=== PATIENT | female | born 1995 | race Caucasian/White ===

== ENCOUNTER 2020-09-20 18:05 | Emergency (ER) | payer OTHER, SELFPAY ==
[2020-09-20 18:12] VITALS: BP 119/87; PULSE 79; RESP 18; TEMP 36.1; O2SAT 98; BMI 25.6
[2020-09-20 19:09] LABS: Appearance Urine HAZY; Color Urine YELLOW; Glucose Urine UA NEG (NEG); Leukocyte Esterase Urine TRACE (NEG); Nitrite Urine POS (NEG); Specific Gravity - Urine 1.025 (1.005-1.025); UACC Culture Trigger YES; Urine Blood NEG (NEG); Urine Ketones 5 MG/DL (NEG); Urine Protein NEG (NEG-TRACE)
[2020-09-20 19:11] LABS: UPreg QC Valid YES; Urine Pregnancy NEGATIVE (NEGATIVE)
[2020-09-20 19:16] LABS: Bacteria Urine 3+ /LPF; RBC Urine 0 /HPF (0); Squamous Epithelial Cell Urine 1+ /LPF
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
[2020-09-20] MEDS: cefTRIAXone sodium 500 MG, Lidocaine HCl 1 % MPF 1 ML IM (20:11)
[2020-09-21 05:44] LABS: CT PCR NOT DETECTED (Not Detect.); NG PCR NOT DETECTED (Not Detect.)
[2020-09-21 08:50] LABS: BV Int Neg Control Negative (Negative); BV Int Pos Control Positive (Positive)
== END 2020-09-20 20:24 | disposition home or self-care (01) ==
PROVIDERS: Physician Assistant; Emergency Provider Emergency Medicine
DX: N39.0 Urinary tract infection, site not specified (principal); N76.0 Acute vaginitis; R30.0 Dysuria; Z79.899 Other long term (current) drug therapy; Z20.2 Contact with and (suspected) exposure to infections with a predominantly sexual mode of transmission
CPT/HCPCS: 81001; 81003; 81025; 87086; 87088; 87186; 87480; 87491; 87510; 87591; 87660; 96372; 99284; J0696

== ENCOUNTER 2021-03-14 11:07 | Outpatient (REF) | payer SELFPAY ==
[2021-03-14 13:19] LABS: COVID-19 Test Positive (Negative)
== END 2021-03-14 11:08 | disposition home or self-care (01) ==
LOC: HO.LAB 11:07
PROVIDERS: Visit Provider Internal Medicine
DX: Z20.822 Contact with and (suspected) exposure to COVID-19 (principal)
CPT/HCPCS: 87635

== ENCOUNTER 2021-11-23 07:56 | Outpatient (REF) | payer OTHER, SELFPAY ==
[2021-11-23 08:26] LABS: COVID-19 Test Positive (Negative); IDNOW Serial# 55D5AD1C
== END 2021-11-23 07:57 | disposition home or self-care (01) ==
LOC: HO.LAB 07:56
PROVIDERS: Visit Provider Internal Medicine
DX: Z20.822 Contact with and (suspected) exposure to COVID-19 (principal)
CPT/HCPCS: 87635; C9803

== ENCOUNTER 2021-11-27 12:14 | Outpatient (REF) | payer OTHER, SELFPAY ==
[2021-11-27 12:56] LABS: COVID-19 Test Negative (Negative); IDNOW Serial# 55D5AD1C
== END 2021-11-27 12:15 | disposition home or self-care (01) ==
LOC: HO.LAB 12:14
PROVIDERS: Visit Provider Internal Medicine
DX: Z20.822 Contact with and (suspected) exposure to COVID-19 (principal)
CPT/HCPCS: 87635; C9803

== ENCOUNTER 2023-01-24 19:59 | Emergency (ER) | payer OTHER, SELFPAY ==
[2023-01-24 20:03] VITALS: BP 140/85; PULSE 77; RESP 18; TEMP 37; O2SAT 100; BMI 25.9
--- NOTE | 2023-01-24 20:03 | ED.EYEPROB ---
HPI - Eye Problem General Chief complaint: Eye Problems Stated complaint: poked eye Time Seen by Provider: 01/24/23 21:05 Source: patient Mode of arrival: ambulatory Limitations: no limitations History of Present Illness HPI Narrative: Patient comes to emergency room complaining right eye pain. Patient states that she accidentally poked her own eye with her fingernail. Patient complaining of erythema, pain and tearing. Related Data Previous Rx's Medication Instructions Recorded doxycycline hyclate 100 mg capsule 100 mg PO BID #14 caps 09/20/20 fluconazole 150 mg tablet 150 mg PO Q3D 2 doses #2 tabs 09/20/20 (Diflucan) metronidazole 500 mg tablet 500 mg PO BID 7 days #14 tabs 09/23/20 (Flagyl) erythromycin 5 mg/gram (0.5 %) eye 0.5 inch ophthalmic (eye) TID #3.5 01/24/23 ointment grams Allergies Allergy/AdvReac Type Severity Reaction Status Date / Time amoxicillin Allergy Hives Verified 09/20/20 18:16 Penicillins [PCN] Allergy Hives Verified 09/20/20 18:16 Review of Systems Review of Systems: Constitutional : No Weight loss, No Fever, No Chills, No Night Sweats, No Fatigue, No Malaise ENT/Mouth : No Hearing loss, No Ear Pain, No Nasal Congestion, No Sinus Pain, No Hoarseness, No sore throat, No Rhinorrhea, No Swallowing Difficulty Eyes: Complaining of right eye pain, erythema, photophobia, No Vision Changes Cardiovascular : No Chest Pain, No SOB, No Dyspnea on Exertion, No Orthopnea, No Edema, No Palpitations Respiratory : No Cough, No Sputum, No Wheezing, No Smoke Exposure, No Dyspnea Gastrointestinal : No Nausea, No Vomiting, No Diarrhea, No Constipation, No abdominal Pain, No Hematochezia, No Melena Genitourinary : no irregular bleeding, No Dysuria, No Urinary Frequency, No Hematuria, No Urinary Incontinence, No Urgency, No Flank Pain, No Urinary Flow Changes, No Hesitancy Musculoskeletal : No joint pain, No Myalgias, No Joint Swelling Skin : No Skin Lesions, No rash Neuro : No Weakness, No Numbness, No Paresthesias, No Loss of Consciousness, No Dizziness, No Headache Psych : No Anxiety/Panic, No Depression, No SI/HI/AH/VH, No Social Issues, Heme/Lymph: No Bruising, No Bleeding,No Lymphadenopathy Endocrine : No Polyuria, No Polydipsia, No Temperature Intolerance [facility] Past Medical History Medical History No acute medical problems Surgical History No history of previous surgery Social History Social History Advance Directives: No Advance Directives Information Provided: No Physical Exam Vital Signs: Vital Signs: Last Vital Signs Temp 98.6 F 01/24/23 20:03 Pulse 77 01/24/23 20:03 Resp 18 01/24/23 20:03 BP 140/85 H 01/24/23 20:03 Pulse Ox 100 01/24/23 20:03 O2 Del Method Room Air 01/24/23 20:03 BMI result Body Mass Index 25.9 Const: Other: Appearance: Alert. Oriented X3. No acute distress. Eyes: Pupils equal, round and reactive to light. Left eye intact, right eye is erythematous, Paz stain test shows a 2 mm corneal laceration, negative Chrissie ENT: Pharynx normal. Neck: Normal inspection. Neck supple. No lymph nodes noted. No crepitus CVS: Normal heart rate and rhythm. Pulses normal. Normal S1 and S2 Respiratory: No respiratory distress. Breath sounds normal. No Wheezing. No rales Abdomen: Soft and nontender. No rigidity. No distention. Skin: Skin warm and dry. Normal skin color. Normal skin turgor. Extremities: No lower extremity edema. No Lacerations. No Rash Neuro: Oriented X 3. No motor deficit. No sensory deficit. Moving all extremities. No slurred speech. CN 2 through 12 grossly intact Psych: calm, cooperative, normal affect Course Course Course Narrative: This is an RME: Additional HPI, ROS, PE not included below will be deferred to primary provider. This is a [id number] presenting to the emergency department with a complaint of right eye pain, redness and photophobia x 4 hours. Pt states that she accidentally hit her right eye with her finger. Has had redness, drainage. Endorsing blurred vision from her right eye. Right eye conjunctiva injected. pupil reactive, clear drainage noted. Plan: Further ER evaluation needed for thorough eye exam Medications Administered Discontinued Medications Generic Name Dose Route Start Last Admin Trade Name Jigar PRN Reason Stop Dose Admin Fluorescein Sodium 1 strip 01/24/23 20:07 01/24/23 20:27 Fluorescein Sodium Strip EYE-RIGHT 01/24/23 20:08 1 strip ONCE ONE Administration Tetracaine HCl 1 drop 01/24/23 20:07 01/24/23 20:27 Tetracaine Hcl/Pf 0.5% Oph Vivienne 4 Ml Drops EYE-RIGHT 01/24/23 20:08 1 drop ONCE ONE Administration Medical Decision Making Medical Decision Making [facility] Narrative: -I discussed the physical exam with the patient, patient has corneal abrasion Differential Diagnosis Differential Diagnoses: The differential diagnosis associated with the presentation includes (Cornea abrasion, laceration, perforation) Discharge Plan Discharge Clinical Impression: Corneal abrasion Patient Disposition: Home, Self-Care Instructions: Corneal Abrasion (ED) Additional Instructions: Please follow-up with your primary care physician tomorrow. If you have any worsening or new symptoms, please return to the emergency room or call 911 Prescriptions: New erythromycin 5 mg/gram (0.5 %) ointment 0.5 inch ophthalmic (eye) TID Qty: 3.5 0RF No Action fluconazole [Diflucan] 150 mg tablet 150 mg PO Q3D Qty: 2 0RF Rx Instructions: may repeat second dose 72 hrs after first dose if symptoms persist doxycycline hyclate 100 mg capsule 100 mg PO BID Qty: 14 0RF metronidazole [Flagyl] 500 mg tablet 500 mg PO BID 7 Days Qty: 14 0RF
[2023-01-24] MEDS: Fluorescein Sodium STRIP 1 STRIP EYE-RIGHT (20:27)
[2023-01-24] MEDS: Tetracaine HCl/PF 0.5% Oph Sol 4 ML DROPS 1 DROP EYE-RIGHT (20:27)
--- NOTE | 2023-01-24 21:16 | PC.NURSE ---
right sclera is red, irritated, surplus tears noted. No purulent drainage.
== END 2023-01-24 21:54 | disposition home or self-care (01) ==
PROVIDERS: Emergency Provider Emergency Medicine; PCP Internal Medicine
DX: S05.01XA Injury of conjunctiva and corneal abrasion without foreign body, right eye, initial encounter (principal); H57.11 Ocular pain, right eye; X58.XXXA Exposure to other specified factors, initial encounter; Y93.9 Activity, unspecified; Y92.9 Unspecified place or not applicable; Y99.9 Unspecified external cause status; Z79.899 Other long term (current) drug therapy
CPT/HCPCS: 99282; 99283

== ENCOUNTER 2025-01-21 05:08 | Day surgery (SDC) | payer OTHER, SELFPAY ==
[2025-01-21] VITALS (19 sets, daily range): BP systolic 88–110; BP diastolic 36–70; PULSE 63–102; RESP 14–24; TEMP 36.6–37.1; O2SAT 96–100; BMI 25.5
--- NOTE | ~2025-01-21 | CT_ITS ---
CLINICAL HISTORY: suprapubic, RLQ pain CT abdomen and pelvis with contrast Comparison: None provided Findings: The lung bases are clear. Unremarkable gallbladder and solid organs. No urolithiasis. No bowel obstruction, pneumoperitoneum, or pneumatosis. Pelvic contents unremarkable. The appendix is not visualized with no imaging evidence of appendicitis. There is dense ascites, possible hemoperitoneum. The bones are intact. IMPRESSION: Possible hemoperitoneum. Clinical follow-up recommended. This document has been electronically signed by: Mekhi Tinoco MD on 01/21/2025 07:10:59
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
[2025-01-21 06:03] LABS: Hematocrit 33.7 % (37.0-47.0); Hemoglobin 10.9 g/dl (12.0-16.0); Imm Gran Abs Auto 0.02 X10*3/uL (0.00-0.03); Imm Gran Pct Auto 0.3 % (0.0-0.4); Lymphocytes Absolute Auto 0.6 X10*3/uL (1.2-4.9); MANUAL DIFF FLAG NO; Mean Corpuscular HGB Conc 32.3 g/dl (31.0-35.0); Mean Corpuscular Hemoglobin 27.7 pg (27.0-33.0); Mean Corpuscular Volume 85.5 fL (80.0-98.0); NRBC Abs Auto 0.000 X10*3/uL (0.0-0.012); NRBC Pct Auto 0.0 /100WBC (0.0-0.2); Platelet Count 182 X10*3/uL (160-400); Red Blood Count 3.94 X10*6/uL (4.20-5.50); White Blood Count 7.7 X10*3/uL (4.8-10.8)
[2025-01-21 06:17] LABS: Alanine Aminotransferase 28 U/L (0-31); Albumin Level 4.3 g/dL (3.5-5.0); Alkaline Phosphatase 40 U/L (39-117); Anion Gap 13 (12-20); Aspartate Amino Transferase 48 U/L (5-31); Blood Urea Nitrogen 14 mg/dL (9-16); Calcium 8.8 mg/dL (8.4-10.2); Carbon Dioxide 22 mmol/L (22-29); Chloride 109 mmol/L (96-108); Creatinine Clr Calc Pharmacy 104.0; Estimated Glomerular Filt Rate > 60; Lipase 16 U/L (8-78); Potassium 4.3 mmol/L (3.3-5.1); Sodium 140 mmol/L (135-145); Total Protein 6.7 g/dL (6.5-8.0)
[2025-01-21] MEDS: iohexoL 350 MG/ML 100 ML INFUS..BTL IV (06:55)
--- OUTSIDE RECORDS SUMMARY | 2025-01-21 06:58 | XMS_ITS | Encounter Summary ---
Author Organization [address] [place] [address] Care Team Providers Care Rolloff Driver Name Role Phone Gail Jerry MD Primary Care Provider [phone] Encounter Details Date Type Department Care Team ([facility] Contact Info) Description 12/07/2024 Results Follow-Up Adult Medicine [address] [phone] Gail Jerry MD [address] [place] [address] Social History Tobacco Use Types Packs/Day Years Used Date Smoking Tobacco: Never Smokeless Tobacco: Never Alcohol Use Standard Drinks/Week Comments Yes 0 (1 standard drink = 0.6 oz pur e alcohol) Housing Instability Answer Date Recorde d Are you worried that in the next 2 months you may not have stable housing? No 04/11/2024 Food Access & Nutrition Answer Date Rec orded Do you have access to a vari ety of food including fruits and vegetables? Yes 04/11/2024 Access to Healthcare Answer Date Record ed Within the last 3 months, ho w many times did you visit the emergency department for your medical care? 2 04/11/2024 Health Literacy Answer Date Recorded How often do you need to hav e someone help you when you read instructions, pamphlets, or other written material from your doctor or pharmacy? Never 04/11/2024 Caregiver: How often do you need to have someone help you when you read instructions, pamphlets, or other written material from your doctor or pharmacy? Not on file 04/11/2024 Financial Risk Answer Date Recorded How hard is it for you to pa y for the very basics like food, housing, medical care, and air conditioning / heating? Very hard 04/11/2024 Transportation Answer Date Recorded Has the lack of transportati on kept you from meetings, work, or from getting things needed for daily living? No Has the lack of transportati on kept you from medical appointments or from getting medications? No 04/11/2024 Social Isolation Answer Date Recorded How often do you feel lonely or isolated from th ose around you? Never 04/11/2024 Food Risk Answer Date Recorded Within the past 12 months we worried whether our food would run out before we got money to buy more. Never true 04/11/2024 Within the past 12 months th e food we bought just didn't last and we didn't have money to get more. Never true 04/11/2024 Dependent Care Answer Date Recorded Do you need help finding or paying for care for your loved ones. For example, early childhood education worker or elderly care for an older adult? No 04/11/2024 Education Answer Date Recorded Do you think completing more education or training, like finishing a GED, going to college, or learning a trade, would be helpful for you? Yes 04/11/2024 Employment and Income Answer Date Recor ded During the last four weeks, have you been actively looking for work? No 04/11/2024 Living Situation Answer Date Recorded What is your living situation? Unrecognized valu e 04/11/2024 Comments Unknown Sex and Gender Information Value Date Recorded Sex Assigned at Female 11/21/2020 10:47 AM EDT Legal Sex Female 9:02 PM EST Gender Identity Female 11/21/2020 10:47 AM EDT Sexual Orientation Straight 11/21/2020 10 :47 AM EDT documented as of this encounter Plan of Treatment Not on file documented as of this encounter Visit Diagnoses Not on filedocumented in this encounter Additional Health Concerns Assessment Noted Time PHQ-9 Depression Total Score: 0 10/14/19 25 2:00 PM EDT documented as of this encounter Care Teams Rolloff Driver Relationship Specialty Start Date End Date Gail Jerry MD [address] [place] [phone] PCP - General Internal Medicine 04/14/24 documented as of this encounter
--- OUTSIDE RECORDS SUMMARY | 2025-01-21 06:58 | XMS_ITS | Encounter Summary ---
Author Organization [facility] Address [address] [place] [address] Phone Care Team Providers Care Kitchen Helper Name Role Phone Bisi Mendes MD Primary Care Provider [phone] Encounter Details Date Type Department Care Team (Late st Contact Info) Description 10/24/2016 Conversion Encounter [facility] [place] [address] [place] [address] Social History Tobacco Use Types Packs/Day Years Used Date Smoking Tobacco: Never Assessed Comments Unknown Sex and Gender Information Value Date Recorded Sex Assigned at Not on file Legal Sex Female 4:15 PM EDT Gender Identity Not on file Sexual Orientation Not on file documented as of this encounter Plan of Treatment Not on file documented as of this encounter Visit Diagnoses Not on filedocumented in this encounter Care Teams Kitchen Helper Relationship Specialty Start Date End Date Bisi Mendes MD [address] [place] [address] PCP - General 10/18/16 08/14/22 documented as of this encounter
--- OUTSIDE RECORDS SUMMARY | 2025-01-21 06:58 | XMS_ITS | Data Portability ---
Author Organization SOHEILA Sandoval [facility], [address] Address [address] [place] [address] Care Team Providers Care Hoop Punch And Coiler Operator Name Role Phone [facility] Primary Care Provide r Assessment No assessment recorded. Plan of Treatment Reminders Order Date Submit Date Provider Last Modified By Organization Details Last Modified Time Details Appointments None recorded. Lab urinalysis, dipstick 20[address] [place] [address] [facility], [address] [place] [address], [phone], 11:15:01 STI panel 2022 023 [facility] [address] [place] [address], [phone], 18:06:04 Referral None recorded. Procedures None recorded. Surgeries None recorded. Imaging None recorded. Medication Orders metronidazo le 0.75 % (37.5 mg/5 gram) vaginal gel 2022 023 [place] [address] [facility], [address] [place], [address], 12:14:25 Patient TargetsNo targets recorded. Patient Instructions Encounter Date Encounter Id Patient Instructions Last Modified By Organization Details Last Modified Time 07/29/2022 [id number] bacterial vaginosis: care instructions [place] [address] Not available 07/29/2022 11:16:44 Reason for Referral None Reported. Results Created Date Observation Date Name Description Value Unit Range Abnormal Flag Note LastModifiedBy Organization Detail LastModifiedTime 07/30/1907/30/2022 NUSWA B BV+MY ENGINEERING LECTURER+C T/GC/ TV HORTENSIA atopobium vaginae HIGH - 2 score abnormal Not Available [facility] [address] [facility], [place], [address], 08/01/2022 18:06:04 07/30/1907/30/2022 NUSWA B BV+MY ENGINEERING LECTURER+C T/GC/ TV HORTENSIA bvab 2 LOW - 0 score Not Available [facility] [address] [facility], [place], [address], 08/01/2022 18:06:04 07/30/1907/30/2022 NUA B BV+MY ENGINEERING LECTURER+C T/GC/ TV HORTENSIA megasphaera 1 HIGH - 2 score abnormal Calcu late total score by elsy g the 3 indiv idual bacte rial vagin osis (BV) marke r score s toget her. Total score is inter prete d as follo ws: Total score 0-1: Indic ates the absen ce of BV. Total score 2: Indet ermin ate for BV. Addit ional clini se data shoul d be evalu ated to estab ling a diagn osis. Total score 3-6: Indic ates the prese nce of BV. This test was devel oped and its perfo rmanc e bret cteri stics deter mined by [facility]. It has not been clear ed or appro lilli by the Food and Drug Admin istra tion. Not Available [facility] [address] [facility], [place], [address], 08/01/2022 18:06:04 07/30/1907/31/2022 NUSWA B BV+MY ENGINEERING LECTURER+C T/GC/ TV HORTENSIA mycoplasma genitalium HORTENSIA NEGATI VE negati ve Not Available [facility] [address] [facility], [place], [address], 08/01/2022 18:06:04 07/30/19 23 07/31/2022 NUA B BV+MY ENGINEERING LECTURER+C T/GC/ TV HORTENSIA mycoplasma hominis HORTENSIA NEGATI VE negati ve Not Available [facility] [address] [facility], [place], [address], 08/01/2022 18:06:04 07/30/19 23 07/31/2022 NUSWA B BV+MY ENGINEERING LECTURER+C T/GC/ TV HORTENSIA ureaplasma spp HORTENSIA POSITI VE negati ve abnormal Not Available [facility] [address] [facility], [place], [address], 08/01/2022 18:06:04 07/30/19 23 08/01/2022 NUA B BV+MY ENGINEERING LECTURER+C T/GC/ TV HORTENSIA trich vag by HORTENSIA NEGATI VE negati ve Not Available [facility] [address] [facility], [place], [address], 08/01/2022 18:06:04 07/30/19 23 08/01/2022 NUA B BV+MY ENGINEERING LECTURER+C T/GC/ TV HORTENSIA chlamydia trachomatis, HORTENSIA NEGATI VE negati ve Not Available [facility] [address] [facility], [place], [address], 08/01/2022 18:06:04 07/30/19 23 08/01/2022 NUA B BV+MY ENGINEERING LECTURER+C T/GC/ TV HORTENSIA neisseria gonorrhoeae, HORTENSIA NEGATI VE negati ve Not Available [facility] [address] [place], [address], 08/01/2022 18:06:04 07/30/19 23 07/29/2022 urina lysis , dipst ick Unknown Analyte Normal = light yellow Not Available [address] [facility], [place], [address], 07/29/2022 10:42:39 07/30/19 23 07/29/2022 urina lysis , dipst ick Unknown Analyte Normal = clear Not Available [address] [address], [place], [address], 07/29/2022 10:42:39 07/30/19 23 07/29/2022 urina lysis , dipst ick Unknown Analyte Normal = negati ve Not Available [address] [facility] [address], [place], [address], 07/29/2022 10:42:39 07/30/19 23 07/29/2022 urina lysis , dipst ick Unknown Analyte Normal = Negati ve Not Available [address] [facility] [address], [place], [address], 07/29/2022 10:42:39 07/30/19 23 07/29/2022 urina lysis , dipst ick Unknown Analyte Normal = Negati ve Not Available [address] [facility] [address], [place], [address], 07/29/2022 10:42:39 07/30/19 23 07/29/2022 urina lysis , dipst ick Unknown Analyte Normal = 1.010, 1.015, 1.020 Not Available [address] [facility], [place], [address], 07/29/2022 10:42:39 07/30/19 23 07/29/2022 urina lysis , dipst ick Unknown Analyte Normal = Negati ve Not Available [address], [place], [address], 07/29/2022 10:42:39 07/30/19 23 07/29/2022 urina lysis , dipst ick Unknown Analyte Normal = 6.5, 7.0, 7.5, 8.0 Not Available [address], [place], [address], 07/29/2022 10:42:39 07/30/19 23 07/29/2022 urina lysis , dipst ick Unknown Analyte Normal = Negati ve Not Available [facility] [address], [place], [address], 07/29/2022 10:42:39 07/30/19 23 07/29/2022 urina lysis , dipst ick Unknown Analyte Normal = 0.2, 1.0 Not Available [address], [place], [address], 07/29/2022 10:42:39 07/30/19 23 07/29/2022 urina lysis , dipst ick Unknown Analyte Normal = Negati ve Not Available [address], [place], [address], 07/29/2022 10:42:39 07/30/19 23 07/29/2022 urina lysis , dipst ick Unknown Analyte Normal = Negati ve Not Available caity [address], [place], [address], 07/29/2022 10:42:39 07/30/19 23 07/29/2022 urina lysis , dipst ick Unknown Analyte Light Yellow Not Available [address], [place], [address], 07/29/2022 10:42:39 07/30/19 23 07/29/2022 urina lysis , dipst ick Unknown Analyte Clear Not Available [address] [place] [address], [place], [address], 07/29/2022 10:42:39 05/2207/29/2022 urina lysis , dipst ick Unknown Analyte Negati ve Not Available [facility] [address] [place] [address], [place], [address], 07/29/2022 10:42:39 07/30/19 23 07/29/2022 urina lysis , dipst ick Unknown Analyte Negati ve Not Available [facility] [address], [place], [address], 07/29/2022 10:42:39 07/30/19 23 07/29/2022 urina lysis , dipst ick Unknown Analyte Negati ve Not Available [facility] [address], [place], [address], 07/29/2022 10:42:39 07/30/19 23 07/29/2022 urina lysis , dipst ick Unknown Analyte 1.020 Not Available k[facility]a [address], [place], [address], 07/29/2022 10:42:39 07/30/19 23 07/29/2022 urina lysis , dipst ick Unknown Analyte Negati ve Not Available [facility], [place], [address], 07/29/2022 10:42:39 07/30/19 23 07/29/2022 urina lysis , dipst ick Unknown Analyte 7.5 Not Available [facility] [address], [place], [address], 07/29/2022 10:42:39 07/30/19 23 07/29/2022 urina lysis , dipst ick Unknown Analyte Negati ve Not Available [facility] [address] [place] [address], [place], [address], 07/29/2022 10:42:39 07/30/19 23 07/29/2022 urina lysis , dipst ick Unknown Analyte 0.2 E.U./d L Not Available [address] [facility], [address], 07/29/2022 10:42:39 07/30/19 23 07/29/2022 urina lysis , dipst ick Unknown Analyte Negati ve Not Available [address] [place], [place] [address] [address], [address], 07/29/2022 10:42:39 07/30/19 23 07/29/2022 urina lysis , dipst ick Unknown Analyte Negati ve Not Available [address], [address], 07/29/2022 10:42:39 Result Notes None recorded. Problems Name Problem SNOMED Code Status Onset Date Resolution Date Notes Provider Name and Address Organization Details Recorded Time Alopecia 73798052 Active 023 SAMEERA todd, [place] - [facility] 07/29/2022 10:40:03 Anxiety 86186226 Active 023 SAMEERA todd, [place] - [facility] 07/29/2022 10:40:10 Problem Notes None recorded. Medical Equipment None Reported. Allergies Allergen ID Allergen Name Allergen Category Reaction Reaction Severity Criticality Documentation Date Start Date Code Code System Note Provider Name and Address Organization Details Recorded Time 266200 amoxicill in medicatio n Not available Not available Not available 07/29/2022 723 RxNorm SAMEERA todd, [place] - [facility] 3 10:39:20 841090 Product containin g penicilli n (product) medicatio n Not available Not available Not available 07/29/2022 61884 8001 SNOMED SAMEERA todd, [place] - [facility] 10:39:26 Medications Name Sig Start Date Stop Date Status Note LastModified by Organization Details LastModified Time fluconazole 150 mg tablet TAKE 1 TABLET BY MOUTH FOR FUNGAL OR YEAST INFECTION 07/29 completed Not Available Not Available Not Available metronidazo le 0.75 % (37.5 mg/5 gram) vaginal gel INSERT 1 APPLICATO RFUL VAGINALLY ONCE DAILY FOR 5 DAYS active Not Available Not Available No t Available polymyxin B sulfate 10,000 unit-trimet hoprim 1 mg/mL eye drops INSTILL 1 DROP INTO THE AFFECTED EYE(S) EVERY 4 HOURS FOR 7 DAYS WHILE AWAKE. USE UNTIL SYMPTOM RESOLUTIO N AND THEN 2 DAYS AFTER. 07/29 completed Not Available Not Available Not Available betamethaso ne dipropionat e 0.05 % topical cream APPLY TO SCALP ONCE A DAY FOR 3 WEEKS, BREAK FOR 1 WEEK, THEN REPEAT NEEDED active Not Available Not Available No t Available hydroxyzine HCl 25 mg tablet TAKE ONE TABLET BY MOUTH THREE TIMES A DAY NEEDED FOR ANXIETY 07/29 completed Not Available Not Available Not Available Nylia (28) 1 mg-35 mcg tablet TAKE 1 TABLET BY MOUTH DAILY, SKIP PLACEBO WEEK active Not Available Not Available No t Available Vitals Date Recorded Body height Body mass index (BMI) Body weight Body temperature Respiratory rate Oxygen saturation Oxygen saturation in Arterial blood by Pulse oximetry Heart rate Systolic And Diastolic Provider Name and Address Organization Details Last Updated DateTime 3 154.94 cm 25.7 kg/m2 36553.5 6 g 97.3 [degF] 18 /min 100 % 100 % 64 /min 109/70 mm[Hg] SAMEERA [facility] 10:42:25 Social History Question Answer Notes LastModified by Organizat ion Details LastModified Time Tobacco Smoking Status Never Smoker SOHEILA Pagan [facility] 07/29/2022 10:40:33 Which Illicit Or Recreational Drugs Have You Used? Marijuana Information not available 07/29/2022 Have You Had Direct Contact, Or Contact During Intimacy, With Monkeypox Rash, Scabs, Or Body Fluids From A Person With Monkeypox? No Information not available 07/29/2022 Have You Recently Traveled Abroad? No Information not available 07/29/2022 Are You Currently In School? No Information not available 07/29/2022 Sex: Unknown Functional Status Question Answer Note LastModified by Organizat ion Details LastModified Time Do you use any illicit or recreational drugs? Yes Information not available 07/29/2022 What is your level of alcohol consumption? Occasional Information not available 07/29/2022 Are you currently employed? Yes Information not available 07/29/2022 Mental Status None recorded. Family History Relationship Description Onset Age of this Age Resolved Age Notes LastModified by Organization Details LastModified Time Father No current problems or disability Not available 07/09 10:40:15 Mother No current problems or disability Not available 07/09 10:40:15 Medical History No medical history recorded. Gynecological History Statement/Question Response Date of LMP 07/21/2022 Is there any chance of ? No Obstetrics History GPAL:G 0 P 0 0 0 0 Immunizations Vaccine Type Date Status Note Provider Nam e and Address Organization Details Recorded Time IPV 1 completed SAMEERA GOODHIND null, PA - [facility] 07/29/2022 10:39:11 IPV 0 completed SAMEERA GOODHIND null, PA - [facility] 07/29/2022 10:39:12 IPV 0 completed SAMEERA GOODHIND null, PA - [facility] 07/29/2022 10:39:12 IPV 6 completed SAMEERA GOODHIND null, PA - [facility] 07/29/2022 10:39:12 Influenza, MDCK, quadrivalent, PF 9 completed SAMEERA GOODHIND null, PA - [facility] 07/29/2022 10:39:12 MMR 0 completed SAMEERA GOODHIND null, PA - [facility] 07/29/2022 10:39:12 MMR 0 completed SAMEERA GOODHIND null, PA - [facility] 07/29/2022 10:39:12 COVID-19, mRNA, LNP-S, PF, 30 mcg/0.3 mL dose 1 completed SAMEERA GOODHIND null, PA - [facility] 07/29/2022 10:39:12 COVID-19, mRNA, LNP-S, PF, 30 mcg/0.3 mL dose 1 completed SAMEERA GOODHIND null, PA - [facility] 07/29/2022 10:39:12 COVID-19, mRNA, LNP-S, PF, 30 mcg/0.3 mL dose 1 completed SAMEERA GOODHIND null, PA - [facility] 07/29/2022 10:39:12 Tdap 9 completed SAMEERA GOODHIND null, PA - [facility] 07/29/2022 10:39:12 Tdap 8 completed SAMEERA GOODHIND null, PA - [facility] 07/29/2022 10:39:12 Pneumococcal conjugate PCV 13 0 completed SAMEERA GOODHIND null, PA - [facility] 07/29/2022 10:39:12 Influenza, split virus, trivalent, PF 3 completed SAMEERA GOODHIND null, PA - [facility] 07/29/2022 10:39:12 HPV, quadrivalent 9 completed SAMEERA GOODHIND null, PA - [facility] 07/29/2022 10:39:12 HPV, quadrivalent 0 completed SAMEERA GOODHIND null, PA - [facility] 07/29/2022 10:39:12 HPV, quadrivalent 1 completed SAMEERA GOODHIND null, PA - [facility] 07/29/2022 10:39:12 Hep B, adolescent or pediatric 6 completed SAMEERA GOODHIND null, PA - [facility] 07/29/2022 10:39:12 Hep B, adolescent or pediatric 0 completed SAMEERA GOODHIND null, PA - [facility] 07/29/2022 10:39:12 Hep B, adolescent or pediatric 6 completed SAMEERA GOODHIND null, PA - [facility] 07/29/2022 10:39:12 Hib (HbOC) 0 completed SAMEERA GOODROMINAND null, PA - [facility] 07/29/2022 10:39:12 meningococcal MCV4P 9 completed SAMEERA GOODHIND null, PA - [facility] 07/29/2022 10:39:12 DTaP 0 completed SAMEERA GOODHIND null, PA - [facility] 07/29/2022 10:39:12 DTaP 0 completed SAMEERA GOODHIND null, PA - [facility] 07/29/2022 10:39:12 DTaP 0 completed SAMEERA GOODHIND null, PA - [facility] 07/29/2022 10:39:12 DTaP 6 completed SAMEERA GOODHIND null, PA - [facility] 07/29/2022 10:39:12 Influenza, split virus, quadrivalent, PF 0 completed SAMEERA GOODHIND null, PA - [facility] 07/29/2022 10:39:12 Past Encounters Encounter ID Performer Location Encounter Start Date Encounter Closed Date Diagnosis/Indication Diagnosis SNOMED-CT Code Diagnosis ICD10 Code Diagnosis IMO Codes Diagnosis Note [id number] [facility] [address] [address] [facility] [address] [place] [phone] 07/01/2017 18:13:22 07/01/2017 19:42:47 [id number] [address] [facility] [address] [place] [address] 09/22/2021 09:29:40 09/22/2021 10:20:25 [id number] [address] [facility] [address] [place] [address] 06/22/2017 11:03:22 06/22/2017 12:08:50 [id number] [address] [facility] [address] [place] [phone] 08/29/2021 10:59:14 08/29/2021 13:00:33 [id number] Rylan [facility]a [facility] [address] [facility] [place] [phone] 07/29/2022 08:46:07 07/29/2022 11:28:53 Acute vaginitis 59537261 N76.0 We have sent out labs to confirm the presence of BV but which are also testing for yeast and STDs. We will contact you with the results and change the medication s if necessary. This could take 3-5 days. If any new symptoms occur or worsen please contact a medical provider. Health Concerns Section Related Observation LastModified by Organization Detai ls LastModified Time None Recorded Concern Status LastModified by Organization Details LastModified Time None Recorded Advance Directives Directive None Recorded Payers Insurance Date Sequence Insurance Name Policy Number Policy Carbajal Covered Member ID Carbajal Member ID Guarantor Name 07/29/2022 1 [facility] [employer] [facility] (O) [id number] [place] [id number] [place] Notes Date Note Type Note Provider Name and Address Organization Details Recorded Time 07/29/2022 text/html Urinary / Body And Frame Man Problems-FemaleReport ed by PatientGU ProblemsFor quality, patient reportsitching. For context, patient reportssexually activebut reportsno prior history of stds. For associated symptoms, patient reportswhite vaginal dischargebut reportsno flank pain,no jaundice,no blood in the urine,no pain during urination, andno urgency. For location, patient reportsvaginal. For severity, patient reportsmoderate. history BV in the past, One partner and not concerned about STD Rylan Talavera MD [address] [place], [address], [place] - [facility] 07/30/2022 15:29:34 OBGyn Episode No OBEpisode recorded.
--- OUTSIDE RECORDS SUMMARY | 2025-01-21 06:58 | XMS_ITS | Clinical Summary ---
Author Organization Patient Business Ser [facility] Address [address] [place] [address] Care Team Providers Care Vice President Tax Name Role Phone Gail Jerry MD Primary Care Provider [phone] Allergies Active Allergy Reactions Criticality Noted Date Comments Amoxicillin 04/10/2018 Other Reaction(s): Hives/Urticaria, Rash/Dermatitis Medications cholecalciferol (VITAMIN D-3) 25 mcg (1,000 unit) tablet Take 1 tablet (1,000 Units total) by mouth 1 (one) time each day. Active biotin (Viviscal Extra Strengh) tablet tablet Take by mouth. Active Active Problems Problem Noted Date Diagnosed Date Family history of breast cancer 10/13/2024 Family history of ovarian cancer 10/13/2024 Pap smear abnormality of cervix with ASCUS favor ing benign 02/27/2022 Overview (02/24/2024): 2019 PAP Normal 2021 PAP ASCUS, neg HPV Plan: per ASCCP: repeat PAP 3 yrs Encounters Date Type Department Care Team Description 12/07/2024 Results Follow-Up Adult Medicine [address] [address] Gail Jerry MD from Last 3 Months Immunizations Immunization Administration Dates Next Due DTaP (Infanrix) 6wks to less than 7yo ,12/06/1999,09/24/1999,02/03 [id number] (Pentacel) 2mo to less than 5yo 12/06/1999 HPV, Quadrivalent 10/15/2010,08/28/2009,08/12/19 09 Hepatitis B Pediatric (Enger ix B; Recombivax HB) to less than 20 yo 12/06/1999,1995,1995 IPV Inactivated polio (Ipol) 6wks and older 09/23/2000,01/17/2000,12/06/1999,02/03 Influenza Quadravalent, MDCK , 0.5ml, preservative free (Flucelvax) 6mo and older 01/11/2023,10/31/2018 Influenza trivalent, 0.5mL, preservative free (Fluarix; FluLaval; Fluzone) ages 6mo and older (Afluria) 3 years and older 03/01/2013 Influenza, Unspecified 12/26/2019 MMR, measles mumps and rubel la Live (Priorix; M-M-R II) 12mo and older 01/17/2000,12/06/1999 Meningococcal MCV4P 08/11/2008 Pfizer SARS-CoV-2 COVID-19, mRNA, LNP-S, preservative free 02/06/2021,04/28/2020,04/07/2020 Pneumococcal conjugate 13 va lent (Prevnar 13, PCV13) 2mo and older 01/17/2000 Tdap Tetanus diptheria acell ular pertussis (Boostrix; Adacel) 7yo and older 07/08/2018,11/27/2007 Varicella live (Varivax) 12m o and older 09/08/1999 Surgical History Surgery Date Site/Laterality Comments OTHER SURGICAL HISTORY PROCEDURE: DENIES PREVIOUS SURGERY Medical History Medical History Date Comments Dysmenorrhea in the adolescent D X:Dysmenorrhea in the adolescent Migraine headache without aura D X:Migraine headache without aura History of COVID-19 03/2021 DX:History o f COVID-19; COMMENT: coughing, loss of taste/smell Family History Medical History Relation Name Comments No Known Problems Brother No Known Problems Father No Known Problems Maternal Grandfather Osteoporosis Maternal Grandmother Depression Mother Hyperlipidemia Mother Other: pcos Mother Diabetes Mother's side 1 mother lindsay chaves Hypertension Mother's side 2 Breast cancer Mother's side 3 Great GMA great grand mother Colon cancer Neg Hx Ovarian cancer Neg Hx Uterine cancer Neg Hx Relation Name Status Comments Brother Alive Father Alive Maternal Grandfather Alive Maternal Grandmother Mother Alive Mother's side 1 Mother's side 2 Mother's side 3 Great GMA Paternal Grandfather Alive Paternal Grandmother Alive Social History Tobacco Use Types Packs/Day Years Used Date Smoking Tobacco: Never Smokeless Tobacco: Never Tobacco Cessation:Counseling Given: Not Answered Alcohol Use Standard Drinks/Week Comments Yes 0 [...] ed Within the last 3 months, ho cuco many times did you visit the emergency [...] care for your loved ones. For example, child attendant or elderly care for an older adult? [...] Orientation Straight 11/21/2020 10 :47 AM EDT Obstetrics History Last Filed Vital Signs Vital Sign Reading Time Taken Comments Blood Pressure 122/72 10/13/2024 2:26 PM EDT Pulse 74 10/13/2024 2:26 PM EDT Temperature 36.7 C (98 F) 10/13/2024 2:26 PM EDT Respiratory Rate 14 04/14/2024 4:22 PM EST Oxygen Saturation - - Inhaled Oxygen Concentration - - Weight 61.7 kg (136 lb) 10/13/2024 2:26 PM EDT Height 154.9 cm (5' 1 ) 10/13/2024 2:26 PM EDT Body Mass Index 25.7 10/13/2024 2:26 PM EDT Plan of Treatment Health Maintenance Due Date Last Done Comments COVID-19 Vaccine ( season) 2024 02/06/2021, 04/28/2020, 04/07/2020 Influenza Vaccine (#1) 2024 4, 01/11/2023, 12/26/2019, Additional history exists Cervical Cancer Screening: Pap Smear 02/15/2025 02/15/2022, 02/15/2022, 02/15/2022, Additional history exists Social Influencers of Health Screening 04/11/2025 04/11/2024 DTaP,Tdap,and Td Vaccines (7 - Td or Tdap) 07/08/2028 07/08/2018, 11/27/2007, 09/23/2000, Additional history exists Cholesterol Screening (Lipid Panel) 10/13/2029 10/13/2024, 05/08/2023 RSV Immunization Adult Patients (1 - 1-dose 75+ series) 11/10/2070 Varicella Vaccines Aged Out 09/08/1999 No longer eligible based on patient's age to complete this topic HIB Vaccines Completed 12/06/1999, 12/06/1999 Hepatitis B Vaccines Discontinued 12/06/1999, 1995, 1995 MMR Vaccines Completed 01/17/2000, 12/06/1999 Pneumococcal Vaccine: Pediatrics (0 to 5 Years) and At-Risk Patients (6 to 49 Years) Completed 01/17/2000 IPV Vaccines Completed 09/23/2000, 11/1999, 12/06/1999, Additional history exists Meningococcal ACWY Vaccine Aged Out 08/11/2008 N o longer eligible based on patient's age to complete this topic HPV Vaccines Completed 10/15/2010, 08/09, 08/11/2008 HIV Screening Completed 04/10/2018 Hepatitis C Screening Completed 04/10/2018 Gonorrhea/Chlamydia Screening Discontinued 02/15/2022 Depression Screening Completed 10/13/2024, 05/08/19 Hepatitis A Vaccines Aged Out No long er eligible based on patient's age to complete this topic Meningococcal B Vaccine Aged Out No l onger eligible based on patient's age to complete this topic RSV Immunization Patients Under 20 months Aged Out No longer eligible based on patient's age to complete this topic Procedures Procedure Name Priority Date/Time Associated Diagnosis Comments VARICELLA ZOSTER ANTIBODY IGG Routine 12/06/2024 12:50 PM EDT Antibody response examination LIPID PANEL WITH REFLEX TO DIRECT LDL Routine 10/13/2024 3:23 PM EDT Encounter for screening for cardiovascular disorders HM DEPRESSION SCREENING Routine 05/08/2023 PAP SMEAR Routine 02/15/2022 HM GONORRHEA/CHLAMYDIA SCRREENING Routine 02/15/2022 HEPATITIS C SCREENING Routine 04/10/2018 HIV SCREENING Routine 04/10/2018 from Last 3 Months or Most Recently Relevant to Health Maintenance Results * Varicella zoster antibody IgG (12/06/2024 12:50 PM EDT) Varicella IgG Positive Positive LAB CHEMISTRY METHOD 12/07/2024 9:29 AM EDT [facility] Varicella Zoster IgG 12.70 >=1.00 S/CO LAB CHEMISTRY METHOD 12/07/2024 9:29 AM EDT [facility] Blood Venous blood specimen / Unknown Venipuncture / Unknown 12/06/2024 12:50 PM EDT 12/06/2024 12:55 PM EDT Narrative [facility] - 12/07/2024 9:29 AM EDT Interpretation >= 1.00 S/CO is considered to be consistent with Immunity us Gail Jerry MD LAB BLOOD ORDERABLES Final Resul t [facility] [address] [place] [address], [place] [phone] * Lipid panel with reflex to direct LDL (10/13/2024 3:23 PM EDT) Cholesterol 159 0 - 200 mg/dL LAB CHEMISTRY METHOD 10/13/2024 7:18 PM EDT [facility] Triglycerides 63 0 - 150 mg/dL LAB CHEMISTRY METHOD 10/13/2024 7:18 PM EDT [facility] HDL 72 >=40 mg/dL LAB CHEMISTRY METHOD 10/13/2024 7:18 PM EDT [facility] LDL Calculated 74 0 - 100 mg/dL LAB CHEMISTRY METHOD 10/13/2024 7:18 PM EDT [facility] Comment:Estimated LDL Calcul ated using equation: Total cholesterol - HDL cholesterol - (Triglycerides/5) VLDL Cholesterol Jean Carlos 12.6 mg/dL LAB CHEMISTRY METHOD 10/13/2024 7:18 PM EDT [facility] Non HDL Chol. (LDL+VLDL) 87 <145 mg/dL LAB CHEMISTRY METHOD 10/13/2024 7:18 PM EDT [facility] Chol/HDL Ratio 2.2 0.0 - 4.4 LAB CHEMISTRY METHOD 10/13/2024 7:18 PM EDT [facility] Blood Venous blood specimen / Unknown Venipuncture / Unknown 10/13/2024 3:23 PM EDT 10/13/2024 3:23 PM EDT Jesusita Quiroz CASE MANAGEMENT COORDINATOR LAB BLOOD ORDERABLES Final R esult [facility] [address] [place] [address], * Depression Screening (05/08/2023) Depression Screening Abstracted Historical Provider MD HEALTH MAINTENANCE Final Result * Gonorrhea/Chlamydia Screening (02/15/2022) Gonorrhea/Chla mydia Screening Abstracted Historical Provider MD HEALTH MAINTENANCE Final Result * Pap smear (02/15/2022) 02/15/2022 Narrative HISTORICAL TESTING LAB RESULTING AGENCY - 02/25/2022 3:55 PM EST [id number] THINPREP PAP, IMAGED: ATYPICAL SQUAMOUS CELLS OF UNDETERMINED SIGNIFICANCE (ASCUS) . ARSLAN FAJARDO , GARLAND(ASCP) (CASE SCREENED 02 20 2022) LUIS ALBERTO BARNETT M.D. , PATHOLOGIST (CASE ELECTRONICALLY SIGNED 02 25 2022) RESULT OF APTIMA HIGH RISK HPV ASSAY: HIGH RISK HPV: NEGATIVE (SEROTYPES 16,18,31,33,35,39,45,51,52,56,58,59,66,68) COMPLETED ON 2022-02-21 ADEQUACY: SATISFACTORY ENDOCERVICAL/TRANSFORMATION ZONE COMPONENT PRESENT. SOURCE: THINPREP PAP HPV IF ASCUS: REFLEX 16 AND 18, CERVICAL, IMAGED CLINICAL INFORMATION: HPV IF DIAGNOSIS OF ASCUS. HORMONES, PAP HX NEGATIVE 2018, LMP 01/27/22, [[id number]] Darleen PRESSLEY LAB CYTOLOGY ORDERABLES Final Result HISTORICAL TESTING LAB RESULTING AGENCY * HIV Screening (04/10/2018) HIV Screening Abstracted Historical Provider HEALTH MAINTENANCE Final Result * Hepatitis C Screening (04/10/2018) Hepatitis C Screening Abstracted Historical Provider HEALTH MAINTENANCE Final Result from Last 3 Months or Most Recently Relevant to Health Maintenance Insurance [facility] Care Teams Vice President Tax Relationship Specialty Start Date End Date Gail Jerry MD NPI: [id number] [place] [phone] PCP - General Internal Medicine 04/14/24
--- OUTSIDE RECORDS SUMMARY | 2025-01-21 06:58 | XMS_ITS | Clinical Summary ---
Author Organization [facility] Address [address] [place] [phone] Phone Care Team Providers Care Tool Supervisor Name Role Phone Coronado, Izzy Vences CNM Primary Care Provider [phone] Allergies Active Allergy Reactions Criticality Noted Date Comments Amoxicillin 04/10/2018 Other reaction(s): Hives/Urticaria, Rash/Dermatitis Penicillins 07/28/2022 Medications betamethasone dipropionate 0.05 % cream APPLY TO SCALP ONCE A DAY FOR 3 WEEKS, BREAK FOR 1 WEEK, THEN REPEAT NEEDED 3 Active norethindrone-eth inyl estradiol (NORTREL , ,) 1-0.035 mg per tablet TAKE ONE TABLET BY MOUTH EVERY DAY SKIP PLACEBO WEEK 3 Active Active Problems No known active problems Immunizations Immunization Administration Dates Next Due DTaP 09/24/1999 [id number] 12/06/1999 Dtap, 5 Pertussis Antigens 09/23/2000,,12/06/1999,02/03 HPV,quadrivalent 10/15/2010,08/28/2009, 9 Hepatitis B 12/06/1999,1995,1995 Hib,PRP-T 12/06/1999 INFLUENZA, SPLIT VIRUS, TRIVALENT PF 03/01/2013 IPV 09/23/2000, 0,12/06/1999,02/03 Influenza Quadrivalent MDCK Preservative Free IM 10/31/2018 Influenza Quadrivalent Prese rvative Free IM 12/26/2019 MMR 01/17/2000,12/06/1999 Meningococcal MCV4P 08/11/2008 Pneumococcal conjugate, PCV 7 01/17/2000 Tdap 07/08/2018,11/27/2007 Social History Tobacco Use Types Packs/Day Years Used Date Smoking Tobacco: Never Assessed Education Answer Date Recorded Are you interested in more education? Not on vahid e 07/28/2022 Are you concerned about learning? Not on file 07/28/2022 No 07/28/2022 No 07/28/2022 Digital Access Answer Date Recorded No 08/06/2022 No 08/06/2022 Reliable internet access at home? Not on file 08/06/2022 Device with a working camera? Not on file Comments Unknown Sex and Gender Information Value Date Recorded Sex Assigned at Not on file Legal Sex Female 3:34 PM EDT Gender Identity Not on file Sexual Orientation Not on file Last Filed Vital Signs Vital Sign Reading Time Taken Comments Blood Pressure 113/73 07/28/2022 3:51 PM EDT Pulse 76 07/28/2022 3:51 PM EDT Temperature 37.3 C (99.1 F) 07/28/2022 3:51 PM EDT Respiratory Rate 16 07/28/2022 3:51 PM EDT Oxygen Saturation 100% 07/28/2022 3:51 PM EDT Inhaled Oxygen Concentration - - Weight 63 kg (139 lb) 07/28/2022 3:51 PM EDT Height 154.9 cm (5' 1 ) 07/28/2022 3:51 PM EDT Body Mass Index 26.26 07/28/2022 3:51 PM EDT Plan of Treatment Health Maintenance Due Date Last Done Comments DEPRESSION SCREENING 2007 SMOKING Hx and SMOKELESS TOBACCO SCREENING 11/10/2008 HEPATITIS C SCREENING 11/10/2013 HIV ONE-TIME SCREENING (18-65 YEARS) 11/10/2013 PAP SMEAR 11/10/2016 INFLUENZA VACCINE (#1) 2024 , 10/31/2018, 03/01/2013 COVID-19 VACCINE ( season) 2024 02/06/2021, 04/28/2020, 04/07/2020 Adult Td,Tdap Booster 07/08/2028 07/08/2018, 09/19/2 008 HIB VACCINES Completed 12/06/1999, 12/06/1999 PNEUMOCOCCAL VACCINES (0-49 years) Aged Out 01/17/2000 No longer eligible based on patient's age to complete this topic IPV VACCINES Completed 09/23/2000, 11/1999, 12/06/1999, Additional history exists MENINGOCOCCAL VACCINES (ACWY) Aged Out 08/11/2008 No longer eligible based on patient's age to complete this topic HEPATITIS A VACCINES Aged Out No long er eligible based on patient's age to complete this topic MENINGOCOCCAL VACCINES (B) Aged Out N o longer eligible based on patient's age to complete this topic Medical Devices Not on file Insurance [facility] [employer] [facility] [employer] [facility] [employer] [facility] [employer] [facility] [employer] [facility] [employer] Care Teams Tool Supervisor Relationship Specialty Start Date End Date Izzy Coronado CNM [address] [place] [address] PCP - General 07/28/22 Additional Source Comments The information contained in this document represents components of the legal health record. It is not the complete legal health record.[facility]
--- OUTSIDE RECORDS SUMMARY | 2025-01-21 06:58 | XMS_ITS | Clinical Summary ---
Author Organization [facility] Address [address] [place] [phone] Phone Care Team Providers Care Tassel Snipper Name Role Phone Unavailable Primary Care Provider Unavailabl e Immunizations Immunization Administration Dates Next Due DTaP 5 09/23/2000,01/17/2000,12/06/1999 ,02/04/1996 Hep B, ped/adol 12/06/1999,1995,1995 Hib (PRP-T) 12/06/1999 IPV 09/23/2000,01/17/2000,12/06/1999 ,02/04/1996 MMR 01/17/2000,12/06/1999 Pneumococcal Conjugate 01/17/2000 Family History Relation Name Status Comments Father Alive Father: Alive a nd well Mother Alive Mother: Alive a nd well Social History Tobacco Use Types Packs/Day Years Used Date Smoking Tobacco: Never Assessed Comments Unknown Sex and Gender Information Value Date Recorded Sex Assigned at Not on file Legal Sex Female 4:15 PM EDT Gender Identity Not on file Sexual Orientation Not on file Plan of Treatment Health Maintenance Due Date Last Done Comments Hepatitis B Vaccines (3 of 3 - 3-dose series) 01/31/2000 12/06/1999, 1995, 1995 DTaP,Tdap,and Td Vaccines (5 - Tdap) 11/10/2006 09/23/2000, 01/17/2000, 12/06/1999, Additional history exists Varicella Vaccines (1 of 2 - 13+ 2-dose series) 11/10/2008 HPV Vaccines (1 - 3-dose SCDM series) 11/10/2022 Influenza Vaccines (#1) 2024 COVID-19 Vaccine ( - 2024- season) 2024 HIB Vaccines Completed 12/06/1999 MMR Vaccines Completed 01/17/2000, 12/06/1999 Pneumococcal Vaccine Completed 01/17/2000 IPV Vaccines Completed 09/23/2000, 11/1999, 12/06/1999, Additional history exists Hepatitis A Vaccines Aged Out No long er eligible based on patient's age to complete this topic Men B Vaccine Aged Out No longer elig ible based on patient's age to complete this topic Meningococcal Vaccine Aged Out No ashkan felix eligible based on patient's age to complete this topic
[2025-01-21 07:12] LABS: Bacterial Vaginosis PCR NEGATIVE (Negative); Candida Group PCR NOT DETECTED (Not Detect); Candida glab krusei PCR NOT DETECTED (Not Detect); Trichomonas vaginalis PCR NOT DETECTED (Not Detect)
--- NOTE | 2025-01-21 07:21 | P.CONOB_ITS ---
COMMUNICATIONS COORDINATOR - CN: HPI Data of Consult Consult date: 01/21/25 Primary Care Provider: Gail Jerry MD Consult Narrative Narrative: I was consulted on [place] is a 29 year old female presenting to the emergency room complaining of 12 hours of suprapubic and pelvic pain that started acutely after sexual intercourse, associated with 2 episodes of vomiting and diarrhea. No vaginal bleeding or discharge, no fever or chills . On arrival the patient's blood pressure was 90/52, the following workup was done emergency room 05:56 H&H= 10.9/33.7, repeated at 07:12 H&H 8.6/26.7, RBC transfusion started HCG less than 2 CT scan: IMPRESSION: Possible hemoperitoneum. Clinical follow-up recommended. GC/CT, BV panel = neg cc:: CC: OB [facility] Past Medical History Medical History No acute medical problems Surgical History Surgical History No history of previous surgery Social History Social History Alcohol intake: never Patient Tobacco Use Status: Never used Tobacco Meds Allergies Allergy/AdvReac Type Severity Reaction Status Date / Time amoxicillin Allergy Hives Verified 01/21/25 05:18 Penicillins (PCN) Allergy Hives Verified 01/21/25 05:18 Active Medications: Current Medications Doxycycline Hyclate 100 mg/ (Sodium Chloride) 250 mls @ 166.67 mls/hr IV ONCE ONE Stop: 01/21/25 07:40 COMMUNICATIONS COORDINATOR Physical Exam Vitals Vital signs: Temp Pulse Resp BP Pulse Ox O2 Del Method 97.9 F 83 21 H 88/50 L 98 Room Air 01/21/25 05:13 01/21/25 06:42 01/21/25 06:42 01/21/25 06:42 01/21/25 06:42 01/21/25 06:42 BMI result Body Mass Index 25.5 Abdomen Auscultation/Inspection/Palpation: Normal bowel sounds, Tenderness, Guarding and Rebound tenderness Female Genitalia (Pelvic) Vagina: Nontender Cervix: Cervical motion tenderness Uterus: Tender Adnexa/Parametria: Adnexal Tenderness: Bilateral COMMUNICATIONS COORDINATOR - Results Labs 01/21/25 05:56 01/21/25 05:56 Labs: Short CBC 01/21/25 Range/Units 05:56 WBC 7.7 (4.8-10.8) X10*3/uL Hgb 10.9 L (12.0-16.0) g/dl Hct 33.7 L (37.0-47.0) % Plt Count 182 (160-400) X10*3/uL BMP 01/21/25 05:56 Sodium 140 Potassium 4.3 Chloride 109 H Carbon Dioxide 22 BUN 14 Creatinine 0.67 Calcium 8.8 Liver Function 01/21/25 Range/Units 05:56 Total Bilirubin 0.5 (0.0-1.0) mg/dL Direct Bilirubin 0.2 (0.0-0.5) mg/dL AST 48 H (5-31) U/L ALT 28 (0-31) U/L Alkaline Phosphatase 40 (39-117) U/L Albumin 4.3 (3.5-5.0) g/dL Assessment and Plan (1) Ovarian cyst rupture: Status: Acute Discussed with the patient the workup and the working diagnosis intra-abdominal bleed with ovarian rupture, recommended laparoscopic evacuation of hemoperitoneum, ovarian cystectomy possible oophorectomy possible laparotomy. Discussed with the patient her clinical scenario Recommended laparoscopic evacuation of hemoperitoneum, ovarian cystectomy, possible oophorectomy, laparotomy. All the pros and cons were discussed with the patient including the risks including but not limited to: Risk of bleeding, infection, possible injury to bladder, bowel, ureter, bladder, possible injury to vessels and need for blood transfusion with all its risks including HIV, hepatitis-B and C and other blood borne pathogens, possible negative impact on future fertility, possible hysterectomy. All questions answered, the patient verbalized understanding agreed with the plan and signed the consent. Type and screen sent. Three packed RBCs units available, Blood transfusion started.
[2025-01-21 07:23] LABS: Hematocrit 26.7 % (37.0-47.0); Hemoglobin 8.6 g/dl (12.0-16.0)
[2025-01-21] MEDS: metroNIDAZOLE/NS 500 MG/100 ML PIGGYBACK 100 MG IV (07:30)
[2025-01-21 07:43] LABS: CT PCR NOT DETECTED (Not Detect.); NG PCR NOT DETECTED (Not Detect.)
--- NOTE | 2025-01-21 08:07 | PC.NURSE ---
This RN called blood bank d/t blood bank tags getting completed incorrectly, verified the band we were currently using was correct, Chris Canales sending down correct T/S, emergent blood verified by patient information only at this time by primary RN and secondary RN
--- NOTE | 2025-01-21 08:13 | PC.NURSE ---
Pt transported to [facility] after examination by surgeon and consent- Mom too all belongings. 3 UNITS Uncrossmatched packed red cells infusing- This RN accompanied pt to preop
--- NOTE | 2025-01-21 08:16 | PC.NURSE ---
Preop report given. Pt with no s/s of tx reaction upon transport. Pt in NAD VSS except still hypotensive. 3 IV accesses infusing well sites patent and no s/s infiltration. Doxy handed to preop RN as it is next to infuse after Flagyl which is almost complete.
--- NOTE | 2025-01-21 08:18 | P.CONAN_ITS ---
HPI - Anesthesia Eval Consult details Narrative: 29 yr old female for Ovarian Cystectomy Laparoscopic T&S pending [facility] Active Problems Active Problems: All Active Problems (Updated 01/21/25 @ 07:52 by Leisa Escamilla MD) Acute hypotension (Acute) Anemia (Acute) Ovarian cyst rupture (Acute) Pelvic pain (Acute) Past Medical History Medical History No acute medical problems Surgical History Surgical History No history of previous surgery Social History Social History Unable to assess alcohol history related to: Unknown Alcohol intake: never Smoked in Last 30 Days: No Advance Directives: No Meds Allergies Allergy/AdvReac Type Severity Reaction Status Date / Time amoxicillin Allergy Hives Verified 01/21/25 05:18 Penicillins (PCN) Allergy Hives Verified 01/21/25 05:18 Exam Height,Weight and Vital Signs: Height 5 ft 1 in Weight 61.235 kg Last Vital Signs Temp 98.3 F 01/21/25 08:06 Pulse 90 01/21/25 08:06 Resp 16 01/21/25 08:06 BP 94/42 L 01/21/25 08:06 Pulse Ox 100 01/21/25 07:29 O2 Del Method Room Air 01/21/25 07:29 Pertinent Lab Results Pertinent Lab Results: Laboratory Tests 01/21/25 01/21/25 01/21/25 05:56 06:10 06:26 WBC 7.7 RBC 3.94 L Hgb 10.9 L Hct 33.7 L MCV 85.5 MCH 27.7 MCHC 32.3 RDW 14.1 Plt Count 182 MPV 10.5 Immature Gran % (Auto) 0.3 Neut % (Auto) 85.2 H Lymph % (Auto) 7.9 L [place] % (Auto) 6.5 Eos % (Auto) 0.0 Baso % (Auto) 0.1 Lymph # (Auto) 0.6 L [place] # (Auto) 0.5 Eos # (Auto) 0.0 Baso # (Auto) 0.0 Abs Immat Gran (auto) 0.02 Absolute Neuts (auto) 6.6 Absolute Nucleated RBC 0.000 Nucleated RBC % (auto) 0.0 Sodium 140 Potassium 4.3 Chloride 109 H Carbon Dioxide 22 Anion Gap 13 BUN 14 Creatinine 0.67 Estim Creat Clear Calc 104.0 Estimated GFR > 60 Random Glucose 117 H Lactic Acid 1.5 Calcium 8.8 Total Bilirubin 0.5 Direct Bilirubin 0.2 AST 48 H ALT 28 Alkaline Phosphatase 40 Total Protein 6.7 Albumin 4.3 Lipase 16 Beta HCG, Quant < 2 Chlam trachomat DNA PCR NOT DETECTED N.gonorrhoeae DNA (PCR) NOT DETECTED T. vaginalis (PCR) NOT DETECTED Bact vaginosis (PCR) NEGATIVE C. krusei/glabrata (PCR) NOT DETECTED Alix group (PCR) NOT DETECTED Crossmatch 01/21/25 01/21/25 07:12 07:52 WBC RBC Hgb 8.6 L D Hct 26.7 L D MCV MCH MCHC RDW Plt Count MPV Immature Gran % (Auto) Neut % (Auto) Lymph % (Auto) [place] % (Auto) Eos % (Auto) Baso % (Auto) Lymph # (Auto) [place] # (Auto) Eos # (Auto) Baso # (Auto) Abs Immat Gran (auto) Absolute Neuts (auto) Absolute Nucleated RBC Nucleated RBC % (auto) Sodium Potassium Chloride Carbon Dioxide Anion Gap BUN Creatinine Estim Creat Clear Calc Estimated GFR Random Glucose Lactic Acid Calcium Total Bilirubin Direct Bilirubin AST ALT Alkaline Phosphatase Total Protein Albumin Lipase Beta HCG, Quant Chlam trachomat DNA PCR N.gonorrhoeae DNA (PCR) T. vaginalis (PCR) Bact vaginosis (PCR) C. krusei/glabrata (PCR) Alix group (PCR) Crossmatch See Detail
--- NOTE | 2025-01-21 08:37 | PC.NURSE ---
family took belongings. [address] into OR
--- NOTE | 2025-01-21 09:05 | HE.NUR.EV ---
3 Units of uncrossmatched RBC's transfused in OR. Completed at 0905.
--- NOTE | 2025-01-21 09:52 | PM.OP ---
Brief Operative Note Date of Service: 01/21/25 Pre-op diagnosis: Ruptured ovarian cyst with hemoperitoneum Post-op diagnosis: same (1 L of hemoperitoneum, ruptured bleeding right corpus luteum cyst) Procedure: Laparoscopic evacuation of 1 L of hemoperitoneum, right ovarian cystectomy Surgeon: Benito Woodward MD Anesthesia: GETA Was an Concrete Batch Plant Operator used for this Procedure?: No Estimated blood loss (mL): 20 IV fluids (mL): 1,000 Urine output (mL): 300 Pathology: other (Right corpus luteum cyst) Condition: stable Disposition: PACU
--- NOTE | 2025-01-21 09:55 | W.PM.OPN ---
Operative Note Operative Note Date of Service: 01/21/25 Narrative: PREOPERATIVE DIAGNOSIS:? Ruptured ovarian cyst with hemoperitoneum POSTOPERATIVE DIAGNOSIS:? Ruptured right ovarian corpus luteum cyst bleeding with 1000 cc of hemoperitoneum Procedure: Laparoscopic right ovarian cystectomy with evacuation of 1000 cc of hemoperitoneum QBL: Minimal IV:1000cc of LR, 3 units of packed RBCs Urine output:300 cc of clear urine Anesthesia: AMADOU SURGEON:? Benito Woodward MD?? Licensed Nursing Assistant: Complications: None Pathology: Right corpus luteum ovarian cyst wall DESCRIPTION OF PROCEDURE:?The patient was taken to the OR where general anesthesia was easily obtained. The patient was then prepped and draped in a sterile fashion and placed in dorsal lithotomy position. A speculum was introduced into the patient?s vagina for cervical visualization. Once the cervix was visualized, a single-toothed tenaculum was applied to the upper lip of the cervix, and a Humi manipulator was introduced into the patient?s cervix. The single tooth tenaculum was then removed and hemostasis was assured?using pressure. a Vale catheter?was inserted and clear urine started draining. Gloves were changed to clean ones. Attention was then drawn to the abdomen where a 10 mm longitudinal incision was done intra umbilical and carried down all the way to the fascia, which was tented?up using 2 Ana clamps and was nicked in the midline and then extended on both end of the incision?, them using 2 pick?ups the peritoneum?was entered with Metzenbaum scissors and under direct visualization, a 10 mm Seals trocar was introduced into the patient?s abdomen. Once intraperitoneal placement was confirmed with direct visualization, pneumoperitoneum was started & was easily obtained.Then, two fingerbreadths above the pubic symphysis and towards the?right lower quadrant, under direct visualization, a 5 mm trocar was then introduced into the patient?s abdomen and a 10 mm trocar on the left?lower quadrant was placed?in a similar manner. The patient was placed in Trendelenburg position, Inspection revealed 1000 cc of hemoperitoneum with right hemorrhagic ovarian cyst bleeding otherwise normal pelvic structures. Using the large suction irrigating through the 10 mm left lower quadrant trocar, suction 1000 cc of hemoperitoneum was done. The cyst was then stabilized with a grasper. Using LigaSure, a cystotomy was done. The cystotomy was extended to allow introduction of the suction inventory assistant into the cyst and the cyst content was aspirated and the cyst cavity irrigated thoroughly. The cystotomy was then extended in the direction of the ovarian axis and the internal moore of the cyst were inspected there were bleeding edges and bleeding bed the cyst wall was grasped dissected of the ovarian stroma with a blunt and sharp dissection using LigaSure. The forceps grasping the cyst wall was rotated to assist in the dissection in peeling away the cyst wall from the surrounding ovarian. Incomplete areas of excision were excised and fulguration to destroy the lining of the cells and to control the bleeding was done using LigaSure. Hemostasis was assured and suction irrigation was done at the end. Copious irrigation was done. Once good hemostasis was noted from the patient?s abdomen, pneumoperitoneum was deflated and all trocars were removed. Infraumbilical fascia was closed with 0 Vicryl and interrupted suture. The skin was closed with 4-0 Vicryl. The Right and left?lower quadrant ports were closed with 0 Vicryl. Bupivicaine 0.25 10 cc were injected subcuticularly in the 3 incisions. Then speculum was put back in the vagina inspection revealed?hemostasis at the site of the tenaculum, the?humi manipulator was removed? and Vale was draining clear urine was taken out too. Sponge, lap and needle counts were correct x2. The patient was taken to the recovery room in stable condition.
[2025-01-21 10:32] LABS: Hematocrit 37.1 % (37.0-47.0); Hemoglobin 12.0 g/dl (12.0-16.0); Mean Corpuscular HGB Conc 32.3 g/dl (31.0-35.0); Mean Corpuscular Hemoglobin 28.9 pg (27.0-33.0); Mean Corpuscular Volume 89.4 fL (80.0-98.0); NRBC Abs Auto 0.000 X10*3/uL (0.0-0.012); NRBC Pct Auto 0.0 /100WBC (0.0-0.2); Red Blood Count 4.15 X10*6/uL (4.20-5.50); White Blood Count 7.8 X10*3/uL (4.8-10.8)
[2025-01-21 10:44] LABS: Platelet Count 125 X10*3/uL (160-400)
== END 2025-01-21 12:16 | disposition home or self-care (01) ==
LOC: HO.ED 07:53 → HO.SSS 08:01
PROVIDERS: Emergency Provider Emergency Medicine; PCP Internal Medicine; Visit Provider Obstetrics & Gynecology
PROC: (CPT 58662; principal; 2025-01-21 08:30)
DX: N83.11 Corpus luteum cyst of right ovary (principal); R10.24 Suprapubic pain; K66.1 Hemoperitoneum; D50.0 Iron deficiency anemia secondary to blood loss (chronic); N94.10 Unspecified dyspareunia; Z88.0 Allergy status to penicillin; Z88.1 Allergy status to other antibiotic agents
CPT/HCPCS: 58662; 36415; 36430; 74177; 80048; 80076; 81515; 83605; 83690; 84702; 85014; 85018; 85025; 85027; 86850; 86900; 86901; 86920; 87040; 87491; 87591; 88304; 88305; 96361; 96374; 96375; 99285; J1100; J1171; J1836; J2003; J2270; J2405; J2704; J2795; J3010; P9016; Q9967

== ENCOUNTER → 2025-01-21 05:31 | Outpatient (BNV) | payer OTHER, SELFPAY | PROVIDERS: Emergency Provider Emergency Medicine; PCP Internal Medicine; Visit Provider Specialist | DX: R10.24 Suprapubic pain (principal); R10.31 Right lower quadrant pain | CPT/HCPCS: 74177 ==

== ENCOUNTER → 2025-01-21 08:00 | Outpatient (BNV) | payer OTHER, SELFPAY | PROVIDERS: Emergency Provider Emergency Medicine; PCP Internal Medicine; Visit Provider Obstetrics & Gynecology | DX: N83.209 Unspecified ovarian cyst, unspecified side (principal) | CPT/HCPCS: 58662; 99222 ==

== ENCOUNTER 2025-02-02 10:17 | Outpatient (AMB) | payer OTHER, SELFPAY ==
--- NOTE | 2025-02-02 10:34 | MHC.OFFVIS ---
Vital Signs 02/02/25 10:36 Height 5 ft 1 in Weight 130 lb BMI 24.6 Intake Visit Reasons: post op Swat Team Member Required: No Information Interpreted: non-clinical & clinical Accompanied by: Mother Allergies amoxicillin Allergy (Verified 02/02/25 10:36) Hives Penicillins (PCN) Allergy (Verified 02/02/25 10:36) Hives Is last menstrual period known: Yes Last menstrual period: 12/08/24 HPI Comments Details: Presenting 2 weeks post laparoscopic ovarian cystectomy with evacuation of hemoperitoneum a doing well with no complaints, minimal vaginal bleeding no abdominal pain incisional redness or discharge. The pathology showed the following: Ovary, right cyst, excision: Hemorrhagic corpus luteum cyst [facility] Medical History Alopecia areata No acute medical problems Surgical History No history of previous surgery Family History Maternal Grandmother Diabetes HTN (hypertension) Breast cancer Social History (Updated 02/02/25 @ 10:43 by Heidy Shepherd CMA) Household Members: Family Housing: House Alcohol intake: current Alcohol intake frequency: holidays/special occasions only Patient Tobacco Use Status: Never used Tobacco Use of substances other than those prescribed or required for medical reasons: No Current occupational status: employed Current occupation: [employer] Sexually active: Yes Sexual orientation: Straight/Heterosexual Gender identity: Female Female Reproductive History Menstrual Age of Menarche: 11 Date of last menstrual period: 12/08/24 control method: none Total pregnancies: 0 Physical Exam Vital Signs: BMI result Body Mass Index 24.6 GI Other: Incision clean dry and intact Assessment & Plan Assessment & Plan (1) Ovarian cyst rupture: Comment: Status post laparoscopic ovarian cystectomy and evacuation of pneumoperitoneum Code(s): N83.209 - Unspecified ovarian cyst, unspecified side Category: Medical Plan: Discussed with the patient the intraoperative finding, pathology results. Instructions given to patient to call in case of any of the following occur, abdominal pain, nausea and vomiting, temperature above 100.4, redness or gapping of any of the incision or vaginal bleeding. All questions answered, the patient verbalized understanding Medications: Discontinued erythromycin Discontinued Reason: Patient Completed Course 0.5 inches ophthalmic (eye) TID 3.5 grams 0RF Coding Level of Care Code Est Pt Level 3 (03872) Diagnoses Ovarian cyst rupture N83.209
[2025-02-02 10:36] VITALS: BMI 24.6
--- OUTSIDE RECORDS SUMMARY | 2025-02-02 12:04 | XMS_ITS | Encounter Summary ---
Author Organization [facility] Address [address] [place] [address] Phone Care Team Providers Care Line Service Supervisor Name Role Phone Bisi Mendes MD Primary Care Provider [phone] Encounter Details Date Type Department Care Team (Late st Contact Info) Description 10/24/2016 Conversion Encounter [facility] [place] [address] [place] [address] Social History Tobacco Use Types Packs/Day Years [...] on filedocumented in this encounter Care Teams Line Service Supervisor Relationship Specialty Start Date End Date Bisi Mendes MD [address] [place] [address] PCP - General 10/18/16 08/14/22 documented as of this encounter
--- OUTSIDE RECORDS SUMMARY | 2025-02-02 12:04 | XMS_ITS | Clinical Summary ---
Author Organization [facility] Address [address] [place] [address] Phone Care Team Providers Care Calender Wind Up Helper Name Role Phone Unavailable Primary Care Provider [...]
--- OUTSIDE RECORDS SUMMARY | 2025-02-02 12:04 | XMS_ITS | Data Portability ---
Author Organization [facility], [facility] [address] Address [address] [place] [address] Care Team Providers Care Counseling Case Manager Name Role Phone [facility] Primary Care Provide r Assessment No assessment recorded. Plan of Treatment Reminders Order Date Submit Date Provider Last Modified By Organization Details Last Modified Time Details Appointments None recorded. Lab urinalysis, dipstick 2022 023 [place] [address] [facility], [address] [place] [address], [phone], 11:15:01 ST[facility] panel 2022 [facility]23 [facility] [address] [place] [address], [address], 18:06:04 Referral None recorded. Procedures None recorded. Surgeries None recorded. Imaging None recorded. Medication Orders metronidazo le 0.75 % (37.5 mg/5 gram) vaginal gel 2022 023 [place] [address] [facility], [address] [place], [address], 12:14:25 Patient TargetsNo targets recorded. Patient Instructions Encounter Date Encounter Id Patient Instructions Last Modified By Organization Details Last Modified Time 07/29/2022 [id number] bacterial vaginosis: care instructions [place] [id number] Not available 07/29/2022 11:16:44 Reason for Referral None Reported. Results Created Date Observation Date Name Description Value Unit Range Abnormal Flag Note LastModifiedBy Organization Detail LastModifiedTime 07/30/1907/30/2022 NUSWA B BV+MY BINDERY PRODUCTION MANAGER+C T/GC/ TV HORTENSIA atopobium vaginae HIGH - 2 score abnormal Not Available [facility] [address] [facility], [place], [address], 08/01/2022 18:06:04 07/30/1907/30/2022 NUSWA B BV+MY BINDERY PRODUCTION MANAGER+C T/GC/ TV HORTENSIA bvab 2 LOW - 0 score Not Available [facility] [address] [facility], [place], [address], 08/01/2022 18:06:04 07/30/1907/30/2022 NUA B BV+MY BINDERY PRODUCTION MANAGER+C T/GC/ TV HORTENSIA megasphaera 1 HIGH - [...] Not Available [facility] [address] [facility], [place], [address], 08/01/2022 18:06:04 07/30/1907/31/2022 NUSWA B BV+MY BINDERY PRODUCTION MANAGER+C T/GC/ TV HORTENSIA mycoplasma genitalium HORTENSIA NEGATI VE negati ve Not Available [facility] [address] [facility], [place], [address], 08/01/2022 18:06:04 07/30/19 23 07/31/2022 NUA B BV+MY BINDERY PRODUCTION MANAGER+C T/GC/ TV HORTENSIA mycoplasma hominis HORTENSIA NEGATI VE negati ve Not Available [facility] [address] [facility], [place], [address], 08/01/2022 18:06:04 07/30/19 23 07/31/2022 NUSWA B BV+MY BINDERY PRODUCTION MANAGER+C T/GC/ TV HORTENSIA ureaplasma spp HORTENSIA POSITI VE negati ve abnormal Not Available [facility] [address] [facility], [place], [address], 08/01/2022 18:06:04 07/30/19 23 08/01/2022 NUA B BV+MY BINDERY PRODUCTION MANAGER+C T/GC/ TV HORTENSIA trich vag by HORTENSIA NEGATI VE negati ve Not Available [facility] [address] [facility], [place], [address], 08/01/2022 18:06:04 07/30/19 23 08/01/2022 NUA B BV+MY BINDERY PRODUCTION MANAGER+C T/GC/ TV HORTENSIA chlamydia trachomatis, HORTENSIA NEGATI VE negati ve Not Available [facility] [address] [facility], [place], [address], 08/01/2022 18:06:04 07/30/19 23 08/01/2022 NUA B BV+MY BINDERY PRODUCTION MANAGER+C T/GC/ TV HORTENSIA neisseria gonorrhoeae, HORTENSIA NEGATI VE negati ve Not Available [facility] [address] [place], [address], 08/01/2022 18:06:04 07/30/19 23 07/29/2022 urina lysis , dipst ick Unknown Analyte Normal = light yellow Not Available [address], [place], [address], 07/29/2022 10:42:39 07/30/19 23 07/29/2022 urina lysis , dipst ick Unknown Analyte Normal = clear Not Available [address] [facility] [address], [place], [address], 07/29/2022 10:42:39 07/30/19 23 07/29/2022 urina lysis , dipst ick Unknown Analyte Normal = negati ve Not Available [address] [facility] [address], [place], [address], 07/29/2022 10:42:39 07/30/19 23 07/29/2022 urina lysis , dipst ick Unknown Analyte Normal = Negati ve Not Available [address] [facility] [address], [place], [address], 07/29/2022 10:42:39 07/30/19 23 07/29/2022 urina lysis , dipst ick Unknown Analyte Normal = Negati ve Not Available [address] [facility] [address], [place], [address], 07/29/2022 10:42:39 07/30/19 23 07/29/2022 urina lysis , dipst ick Unknown Analyte Normal = 1.010, 1.015, 1.020 Not Available [address] [facility], [place], [address], 07/29/2022 10:42:39 07/30/19 23 07/29/2022 urina lysis , dipst ick Unknown Analyte Normal = Negati ve Not Available [address], [place], [address], 07/29/2022 10:42:39 07/30/19 23 07/29/2022 urina lysis , dipst ick Unknown Analyte Normal = 6.5, 7.0, 7.5, 8.0 Not Available [address] [address], [place], [address], 07/29/2022 10:42:39 07/30/19 23 07/29/2022 urina lysis , dipst ick Unknown Analyte Normal = Negati ve Not Available [facility] [address], [place], [address], 07/29/2022 10:42:39 07/30/19 23 07/29/2022 urina lysis , dipst ick Unknown Analyte Normal = 0.2, 1.0 Not Available [address], [place], [address], 07/29/2022 10:42:39 07/30/19 23 07/29/2022 urina lysis , dipst ick Unknown Analyte Normal = Negati ve Not Available [address], [place], [address], 07/29/2022 10:42:39 07/30/19 23 07/29/2022 urina lysis , dipst ick Unknown Analyte Normal = Negati ve Not Available caity [address], [place], [address], 07/29/2022 10:42:39 07/30/19 23 07/29/2022 urina lysis , dipst ick Unknown Analyte Light Yellow Not Available [address], [place], [address], 07/29/2022 10:42:39 07/30/19 23 07/29/2022 urina lysis , dipst ick Unknown Analyte Clear Not Available [address] [place] [address], [place], [address], 07/29/2022 10:42:39 05/2207/29/2022 urina lysis , dipst ick Unknown Analyte Negati ve Not Available [facility] [address] [place] [address], [place], [address], 07/29/2022 10:42:39 07/30/19 23 07/29/2022 urina lysis , dipst ick Unknown Analyte Negati ve Not Available [facility] [address], [place], [address], 07/29/2022 10:42:39 07/30/19 23 07/29/2022 urina lysis , dipst ick Unknown Analyte Negati ve Not Available [facility] [address], [place], [address], 07/29/2022 10:42:39 07/30/19 23 07/29/2022 urina lysis , dipst ick Unknown Analyte 1.020 Not Available kaela [address], [place], [address], 07/29/2022 10:42:39 07/30/19 23 07/29/2022 urina lysis , dipst ick Unknown Analyte Negati ve Not Available [facility], [place], [address], 07/29/2022 10:42:39 07/30/19 23 07/29/2022 urina lysis , dipst ick Unknown Analyte 7.5 Not Available kaela [address], [place], [address], 07/29/2022 10:42:39 07/30/19 23 07/29/2022 urina lysis , dipst ick Unknown Analyte Negati ve Not Available [facility] [address] [place] [address], [place], [address], 07/29/2022 10:42:39 07/30/19 23 07/29/2022 urina lysis , dipst ick Unknown Analyte 0.2 E.U./d L Not Available [address] [facility], [address], 07/29/2022 10:42:39 07/30/19 23 07/29/2022 urina lysis , dipst ick Unknown Analyte Negati ve Not Available [address] [place] [address] [address], [address], 07/29/2022 10:42:39 07/30/19 23 07/29/2022 urina lysis , dipst ick Unknown Analyte Negati ve Not Available [address], [address], 07/29/2022 10:42:39 Result Notes None recorded. Problems Name Problem SNOMED Code Status Onset Date Resolution Date Notes Provider Name and Address Organization Details Recorded Time Alopecia 34071937 Active 023 SAMEERA todd, [place] - [facility] 07/29/2022 10:40:03 Anxiety 21753919 Active 023 SAMEERA todd, [place] - [facility] 07/29/2022 10:40:10 Problem Notes None recorded. Medical Equipment None Reported. Allergies Allergen ID Allergen Name Allergen Category Reaction Reaction Severity Criticality Documentation Date Start Date Code Code System Note Provider Name and Address Organization Details Recorded Time 643956 amoxicill in medicatio n Not available Not available Not available 07/29/2022 723 RxNorm SAMEERA todd, PA - [facility] 3 10:39:20 006388 Product containin g penicilli n (product) medicatio n Not available Not available Not available 07/29/2022 42113 8001 SNOMED [facility] - [facility] [...] Not Available Not Available Not Available Nylia 35 (28) 1 mg-35 mcg tablet TAKE 1 TABLET BY MOUTH DAILY, SKIP PLACEBO WEEK active Not Available Not Available No t Available Vitals Date Recorded Body height Body mass index (BMI) Body weight Body temperature Respiratory rate Oxygen saturation Heart rate Systolic And Diastolic Provider Name and Address Organization Details Last Updated DateTime 3 154.94 cm 25.7 kg/m2 27662.5 6 g 97.3 [degF] 18 /min 100 % 64 /min 109/70 mm[Hg] SAMEERA PARNELL - [facility] 10:42:25 Social History Question Answer Notes LastModified by Organizat ion Details LastModified Time Tobacco Smoking Status Never Smoker SAMEERA todd PA [facility] 07/29/2022 10:40:33 Which Illicit Or [...] Details Recorded Time IPV 1 completed SAMEERA GOODROMINAND null, PA - [facility] 07/29/2022 10:39:11 IPV 0 completed SAMEERA GOODHIND null, PA - [facility] 07/29/2022 10:39:12 IPV 0 completed SAMEERA GOODHIND null, PA - [facility] 07/29/2022 10:39:12 IPV 6 completed SAMEERA HECTOR null, PA - [facility] 07/29/2022 10:39:12 Influenza, MDCK, quadrivalent, PF 9 completed SMAEERA GOODHIND null, PA - [facility] 07/29/2022 10:39:12 MMR 0 completed SAMEERA ANILND null, PA - [facility] 07/29/2022 10:39:12 MMR 0 completed SAMEERA GOODROMINAND null, PA - [...] 07/29/2022 10:39:12 Hib (HbOC) 0 completed SAMEERA MAND null, PA - [facility] 07/29/2022 10:39:12 [...] split virus, quadrivalent, PF 0 completed SAMEERA MAND null, PA - [facility] 07/29/2022 10:39:12 Past Encounters Encounter ID Performer Location Encounter Start Date Encounter Closed Date Diagnosis/Indication Diagnosis SNOMED-CT Code Diagnosis ICD10 Code Diagnosis IMO Codes Diagnosis Note [id number] [facility] [address] [place] [phone] 07/01/2017 18:13:22 07/01/2017 19:42:47 [id number] [facility] [address] [place] [address] 09/22/2021 09:29:40 09/22/2021 10:20:25 [id number] [facility] [address] [place] [id number] 06/22/2017 11:03:22 06/22/2017 12:08:50 [id number] [facility] [address] [place] [id number] 08/29/2021 10:59:14 08/29/2021 13:00:33 [id number] Rylan Talavera MD [address] [address] [place] [phone] 07/29/2022 08:46:07 07/29/2022 11:28:53 Acute vaginitis 43913221 N76.0 We have sent out labs to [...] Carbajal Member ID Guarantor Name 07/29/2022 1 [facility] [employer] [facility] (O) [id number] [place] [id number] 0 [place] Notes Date Note Type Note Provider Name and Address Organization Details Recorded Time 07/29/2022 text/html 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 For context, patient reportssexually activebut reportsno prior history of stds. For associated symptoms, patient reportswhite vaginal dischargebut reportsno flank pain,no jaundice,no blood in the urine,no pain during urination, andno urgency. For location, patient reportsvaginal. For severity, patient reportsmoderate. history BV in the past, One partner and not concerned about STD Rylan Talavera MD [address] [facility] [place], [address], PA - [facility] 07/30/2022 15:29:34 OBGyn Episode No OBEpisode recorded.
--- OUTSIDE RECORDS SUMMARY | 2025-02-02 12:04 | XMS_ITS | Clinical Summary ---
Author Organization Patient Business Ser [facility] Address [address] [place] [address] Care Team Providers Care Dealer Sales Manager Name Role Phone Gail Jerry MD Primary Care Provider [phone] Allergies Active Allergy Reactions Criticality Noted Date [...] Team Description 12/07/2024 Results Follow-Up Adult Medicine [address] [address] Gail Jerry MD from Last 3 Months Immunizations Immunization Administration Dates Next Due DTaP (Infanrix) 6wks to less than 7yo ,12/06/1999,09/24/1999,02/03 [id number]-WSM-YRT (Pentacel) 2mo to less than 5yo 12/06/1999 [...] for your loved ones. For example, child nutrition director or elderly care for an older adult? [...] LAB CHEMISTRY METHOD 12/07/2024 9:29 AM EDT [facility] Varicella Zoster IgG 12.70 >=1.00 S/CO LAB CHEMISTRY METHOD 12/07/2024 9:29 AM EDT [facility] Blood Venous blood specimen / Unknown Venipuncture / Unknown 12/06/2024 12:50 PM EDT 12/06/2024 12:55 PM EDT Narrative [facility] - 12/07/2024 9:29 AM EDT Interpretation >= 1.00 S/CO is considered to be consistent with Immunity us Gail Jerry MD LAB BLOOD ORDERABLES Final Resul t [facility] [address] [place] [address], [place] [phone] * Lipid panel with reflex to direct LDL (10/13/2024 3:23 PM EDT) Cholesterol 159 0 - 200 mg/dL LAB CHEMISTRY METHOD 10/13/2024 7:18 PM EDT [facility] Triglycerides 63 0 - 150 mg/dL LAB CHEMISTRY METHOD 10/13/2024 7:18 PM EDT [facility] HDL 72 >=40 mg/dL LAB CHEMISTRY METHOD 10/13/2024 7:18 PM EDT [facility] LDL Calculated 74 0 - 100 mg/dL LAB CHEMISTRY METHOD 10/13/2024 7:18 PM EDT [facility] Comment:Estimated LDL Calcul ated using equation: Total cholesterol - HDL cholesterol - (Triglycerides/5) VLDL Cholesterol Jean Carlos 12.6 mg/dL LAB CHEMISTRY METHOD 10/13/2024 7:18 PM EDT [facility] Non HDL Chol. (LDL+VLDL) 87 <145 mg/dL LAB CHEMISTRY METHOD 10/13/2024 7:18 PM EDT [facility] Chol/HDL Ratio 2.2 0.0 - 4.4 LAB CHEMISTRY METHOD 10/13/2024 7:18 PM EDT [facility] Blood Venous blood specimen / Unknown Venipuncture / Unknown 10/13/2024 3:23 PM EDT 10/13/2024 3:23 PM EDT Jesusita Quiroz ENTERTAINMENT REPORTER LAB BLOOD ORDERABLES Final R esult [facility] [address] [place] [address], * Depression Screening (05/08/2023) Depression Screening Abstracted Historical Provider MD HEALTH MAINTENANCE Final Result * Gonorrhea/Chlamydia Screening (02/15/2022) Gonorrhea/Chla mydia Screening Abstracted Historical Provider MD HEALTH MAINTENANCE Final Result * Pap smear (02/15/2022) 02/15/2022 Narrative HISTORICAL TESTING LAB RESULTING AGENCY - 02/25/2022 3:55 PM EST [id number] THINPREP PAP, IMAGED: ATYPICAL SQUAMOUS CELLS OF [...] Most Recently Relevant to Health Maintenance Insurance [facility] [employer] Care Teams Dealer Sales Manager Relationship Specialty Start Date End Date Gail Jerry MD NPI: [id number] [place] [phone] PCP - General Internal Medicine 04/14/24
--- OUTSIDE RECORDS SUMMARY | 2025-02-02 12:05 | XMS_ITS | Encounter Summary ---
Author Organization [place] [address] Care Team Providers Care Health Clinician Name Role Phone Gail Jerry MD Primary Care Provider [phone] Encounter Details Date Type Department Care Team ([facility] Contact Info) Description 12/07/2024 Results Follow-Up Adult Medicine [address] [phone] Gail Jerry MD [address] [place] [address] Social History Tobacco Use Types Packs/Day Years [...] care for your loved ones. For example, director child abuse therapy or elderly care for an older adult? [...] documented as of this encounter Care Teams Health Clinician Relationship Specialty Start Date End Date Gail Jerry MD [address] [place] [id number] PCP - General Internal Medicine 04/14/24 documented as of this encounter
--- OUTSIDE RECORDS SUMMARY | 2025-02-02 12:05 | XMS_ITS | Clinical Summary ---
Author Organization [facility] Address [address] [place] [id number] Phone Care Team Providers Care Outsole Molder Name Role Phone Coronado, Izzy Vences CNM Primary Care Provider [phone] Allergies Active Allergy Reactions Criticality Noted Date [...] Immunization Administration Dates Next Due DTaP 09/24/1999 [id number] 12/06/1999 Dtap, 5 Pertussis Antigens 09/23/2000,,12/06/1999,02/03 HPV,quadrivalent [...] HEPATITIS C SCREENING 11/10/2013 HIV ONE-TIME SCREENING (18-6 5 YEARS) 11/10/2013 PAP SMEAR 11/10/2016 INFLUENZA VACCINE (#1) 2024 , 10/31/2018, 03/01/2013 COVID-19 VACCINE (2024-2 6 season) 2024 02/06/2021, 04/28/2020, 04/07/2020 Adult Td,Tdap Booster 07/08/2028 07/08/2018 , 11/27/2007 HIB VACCINES Completed 12/06/1999, 12/06/1999 PNEUMOCOCCAL VACCINES (0-49 years) Aged Out 01/17/2000 No longer eligible b ased on patient's age to complete this topic MENINGOCOCCAL VACCINES (ACWY) Aged Out 08/11/2008 No longer eligible based on patient's age to complete this topic HEPATITIS A VACCINES Aged Out No long er eligible based on patient's age to complete this topic MENINGOCOCCAL VACCINES (B) Aged Out N o longer eligible based on patient's age to complete this topic Medical Devices Not on file Insurance [facility] [facility] [employer] [facility] [employer] Care Teams Outsole Molder Relationship Specialty Start Date End Date Izzy Coronado CNM [address] [place] [address] PCP - General 07/28/22 Additional Source Comments The information contained in this document represents components of the legal health record. It is not the complete legal health record.[facility]
== END 2025-02-02 11:01 | disposition home or self-care (01) ==
LOC: HO.HWS 10:17
PROVIDERS: PCP Internal Medicine; Visit Provider Obstetrics & Gynecology
DX: N83.209 Unspecified ovarian cyst, unspecified side (principal)
CPT/HCPCS: 99024

== ENCOUNTER → 2025-02-02 10:17 | Outpatient (BNVA) | payer OTHER, SELFPAY | PROVIDERS: PCP Internal Medicine; Visit Provider Obstetrics & Gynecology | DX: N83.209 Unspecified ovarian cyst, unspecified side (principal); Z98.890 Other specified postprocedural states | CPT/HCPCS: 99212 ==

== ENCOUNTER 2025-02-14 13:44 | Outpatient (REF) | payer OTHER, SELFPAY ==
[2025-02-14 14:38] LABS: Hematocrit 38.9 % (37.0-47.0); Hemoglobin 12.6 g/dl (12.0-16.0); Mean Corpuscular HGB Conc 32.4 g/dl (31.0-35.0); Mean Corpuscular Hemoglobin 28.4 pg (27.0-33.0); Mean Corpuscular Volume 87.6 fL (80.0-98.0); NRBC Abs Auto 0.000 X10*3/uL (0.0-0.012); NRBC Pct Auto 0.0 /100WBC (0.0-0.2); Platelet Count 217 X10*3/uL (160-400); Red Blood Count 4.44 X10*6/uL (4.20-5.50); White Blood Count 4.8 X10*3/uL (4.8-10.8)
== END 2025-02-14 13:45 | disposition home or self-care (01) ==
LOC: HO.LAB 13:44
PROVIDERS: PCP Internal Medicine; Visit Provider Obstetrics & Gynecology
DX: N83.209 Unspecified ovarian cyst, unspecified side (principal)
CPT/HCPCS: 36415; 85027